=== PATIENT | female | born 1960 | race Two or more races ===

== ENCOUNTER 2017-02-12 03:22 | Emergency (ER) | payer SELFPAY ==
[2017-02-12 03:32] VITALS: BP 144/73; PULSE 68; RESP 18; TEMP 98.1; O2SAT 94
--- NOTE | 2017-02-12 03:39 | EDPHY ---
H & P Stated Complaint: l big toe infection HPI/ROS: HPI CHIEF COMPLAINT: Left great toe pain. HISTORY OF PRESENT ILLNESS: The patient very pleasant 56-year-old female she has significant past medical history for spherocytosis, otherwise healthy, over life she has had problems with her left great toe with ingrown toenail and infection. She just moved here from [place]. She presents emergency room at 3: 45 a.m. in the morning with left great toe pain. The pain throbbing since earlier tonight. No fever. She has minimal redness. She concerns ingrown an infected. 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 Here in emergency room she is in no acute distress, left great toe is mildly red I do not appreciate any pus or significant infection. The left great toe is significantly grown into the toe itself. I do recommend she takes anti- inflammatory pain medicine, narcotic pain medicine with severe pain warm soaks antibiotics and follows up with Podiatry. Additionally I will give her referral to Hematology for her spherocytosis. Past Medical History: Spherocytosis Past Surgical History: No recent surgery Social History: Just relocated to [facility] from [facility], denies daily use drugs alcohol tobacco products. Family History: Noncontributory ROS REVIEW OF SYSTEMS: A comprehensive 10 point review of systems is otherwise negative aside from elements mentioned in the history of present illness. Exam Constitutional appears well nontoxic, triage nursing summary reviewed, vital signs reviewed, awake/alert. Eyes normal conjunctivae and sclera, EOMI, PERRLA. HENT normal inspection, atraumatic, moist mucus membranes, no epistaxis, neck supple/ no meningismus, no raccoon eyes. Respiratory clear to auscultation bilaterally, normal breath sounds, no respiratory distress, no wheezing. Cardiovascular rate normal, regular rhythm, no murmur, no edema, distal pulses normal. Gastrointestinal soft, non-tender, no rebound, no guarding, normal bowel sounds, no distension, no pulsatile mass. Genitourinary no CVA tenderness. Musculoskeletal left great toe left foot is neurovascular intact. Left great toe no significant pus swelling or significant redness minimal redness around the edge of the nail. The nail significantly grown into the toe. Good cap refill. Good pulse. Sensation intact. no midline vertebral tenderness, full range of motion, no calf swelling, no tenderness of extremities, no meningismus , good pulses, neurovascularly intact. Skin pink, warm, & dry, no rash, skin atraumatic. Neurologic awake, alert and oriented x 3, AAOx3, moves all 4 extremities equally, motor intact, sensory intact, CN II-XII intact, normal cerebellar, normal vision, normal speech. Psychiatric normal mood/affect. Heme/Lymph/Immune no lymphadenopathy. Differential Diagnosis: Includes but is not limited to in a particular order ingrown toenail, toe infection, cellulitis. Medical Decision Making: Plan for this patient ibuprofen and [place] for pain control. Warm soaks 3 times a day for 20 minutes. Keflex antibiotic. Close podiatry follow-up for removal of toe-nail. Additionally will give Hematology follow-up. Source: Patient - Personal History LMP (Females 10-55): Post Menopausal Current Tetanus/Diphtheria Vaccine: Yes Current Tetanus Diphtheria and Acellular Pertussis (TDAP): Yes - Medical/Surgical History Hx Asthma: No Hx Chronic Respiratory Disease: No Hx Diabetes: No Hx Cardiac Disease: No Hx Renal Disease: No Hx Cirrhosis: No Hx Alcoholism: No Hx HIV/AIDS: No Hx Splenectomy or Spleen Trauma: No Other PMH: gallbladder. - Social History Smoking Status: Never smoked Constitutional: Initial Vital Signs Temperature (C) 36.7 C 02/12/17 03:26 Heart Rate 68 02/12/17 03:26 Respiratory Rate 18 02/12/17 03:26 Blood Pressure 144/73 H 02/12/17 03:26 O2 Sat (%) 94 02/12/17 03:26 O2 Delivery Mode Room Air Allergies/Adverse Reactions: No Known Allergies Allergy (Unverified 02/12/17 03:26) Home Medications: Medication Instructions Recorded Cephalexin [Keflex] 500 mg PO Q6H #28 cap 02/12/17 Hydrocodone/APAP 5/325 [[place] 1 - 2 tab PO Q4H PRN #10 tab 02/12/17 5/325] Ibuprofen [Motrin (*)] 800 mg PO Q6-8PRN #10 tab 02/12/17 Departure - Departure Disposition: Home, Routine, Self-Care Clinical Impression: Toe pain, left Condition: Good Instructions: Ingrown Nail (ED) Additional Instructions: 1. Warm soaks 3 times a day for 20 minutes. 2. Anti-inflammatory pain medicine for mild pain [place] for severe pain. 3. Antibiotics as prescribed. 4. Please follow up with Podiatry. 5. Additionally recommend you for establish care with Hematology here in [facility]. Referrals: NONE *PRIMARY CARE P,. [Primary Care Provider] - As per Instructions [facility],. [Clinic] - As per Instructions Ubaldo Ferrer DPM [Doctor of Podiatric Medicine] - As per Instructions Olegario Medellin MD [Medical Doctor] - As per Instructions Prescriptions: Cephalexin [Keflex] 500 mg PO Q6H #28 cap Hydrocodone/APAP 5/325 [[place] 5/325] 1 - 2 tab PO Q4H PRN #10 tab PRN Reason: Pain, Moderate Ibuprofen [Motrin (*)] 800 mg PO Q6-8PRN #10 tab
[2017-02-12] MEDS ORDERED: CEPHALEXIN 500 MG CAP PO ONE (04:03)
[2017-02-12] MEDS ORDERED: CEPHALEXIN 500MG PREPACK#4 BTL TAKEHOME ONE (04:03)
[2017-02-12] MEDS ORDERED: HYDROCOD/APAP 5/325 PREPACK#6 BTL TAKEHOME ONE (04:04)
[2017-02-12] MEDS ORDERED: HYDROCODONE/APAP 5/325 TAB PO ONE (04:04)
== END 2017-02-12 04:14 | disposition home or self-care (01) ==
DX: M79.675 Pain in left toe(s) (principal)